=== PATIENT | male | born 1955 | race Caucasian/White ===

== ENCOUNTER 2024-01-04 09:03 | Outpatient (CLI) | payer MEDICARE | END 2024-01-05 23:59 | disposition home or self-care (01) | LOC: MRI02 09:03 | PROVIDERS: ATTEND Family Medicine Sports Medicine | DX: S83.242A Other tear of medial meniscus, current injury, left knee, initial encounter (principal); S83.282A Other tear of lateral meniscus, current injury, left knee, initial encounter; M25.562 Pain in left knee; M25.462 Effusion, left knee; M77.9 Enthesopathy, unspecified; M79.10 Myalgia, unspecified site; M21.70 Unequal limb length (acquired), unspecified site; X58.XXXA Exposure to other specified factors, initial encounter; Y93.89 Activity, other specified; Y92.89 Other specified places as the place of occurrence of the external cause; Y99.8 Other external cause status | CPT/HCPCS: 73721 ==